=== PATIENT | female | born 1965 | race Caucasian/White ===

== ENCOUNTER 2017-07-23 12:16 | Inpatient (IN) | payer OTHER, MEDICAID ==
[~2017-07-23] VITALS: Ht 171.4 cm; Wt 61.1 kg
[2017-07-23 12:21] VITALS: BP 112/64; PULSE 98; RESP 20; O2SAT 96
--- NOTE | 2017-07-23 13:10 | ED.REPORT ---
HPI-Rash / Abscess Date of Service Jul 23, 2017 ED Provider: Doc,Ed MD History of Present Illness: noticed a month ago, redness and swelling on lower legs, saw some one at the walk in clinic in [place]. Has All and leukemia. not seeing anyone. on methadone now at 65mg at [facility], gradually getting worse, no notable allev/exac factors, described as similar to when she's had infections previously. also intermittent fever patient reports brother shot himself 2 days ago. At this time patient does not want to speak with DIESEL DINKEY OPERATOR Nursing Notes Chief Complaint: Skin Rash/Abscess Nursing Notes Reviewed: Yes Allergies: Coded Allergies: Penicillins (Verified Allergy, Mild, 07/23/17) Bright Pepper (Verified Allergy, Unknown, NO GREEN OR RED (BRIGHT) PEPPER, ) General Time Seen by MD: 13:10 Chief Complaint Rash Hx Obtained From: Patient Onset Occurred: More than a week ago... (1 month) Symptom Duration: Since onset Past Medical History Past Medical History Notes: ALL Past Medical History Reports: COPD Past Surgical History abscesses opened up, mostly right shoulder, left knee, eye Smoking History Current Every Day Smoker (5 cig a day for 35 years) Social History using heroin also per her report 4 days ago Alcohol Use: Denies alcohol use Drug Use: THC Occupation lives by self, no work or school 07/23/2017 Ambulatory Status Independent Review of Systems Basic Review of Systems : No dysuria, No frequency Endocrine: No cold intolerance, No heat intolerance, No weight gain, No weight loss Constitutional: Reports: Fever, Malaise Eyes: Denies: Visual loss bilateral Ears / Nose / Throat: Denies: Sore throat Respiratory: Denies: Shortness of breath Cardiovascular: Denies: Chest pain GI: Denies: Abdominal pain, Nausea, Vomiting Musculoskeletal: Denies: Back pain Skin: Reports Rash Allergy / Immune: Denies: Itching Complete sys rev & neg: except as marked. Female: Denies: Dysuria Hematologic: Denies Petechiae Endocrine: Denies: Polyuria Neurologic: Denies: Headache Psychiatric: Denies: Suicidal ideation Physical Exam Physical Exam Notes: pateint is clearly under the influence, when asked when she used last, stated 4 days ago. Initial Vital Signs Vital Signs (First) Date Time Temp Pulse Resp B/P Pulse Ox O2 Delivery O2 Flow Rate FiO2 07/23/17 12:21 37.4 98 20 112/64 96 Room Air Initial VS: Reviewed, Vital signs normal Head / Eyes: Atraumatic, Normocephalic, PERRL ENT: Mucous membranes moist, Conjunctiva normal, No scleral icterus Neck: Supple, Non-tender, Full range of motion Respiratory: Breath sounds normal, Clear to auscultation, No respiratory distress Cardiovascular: Regular rate & rhythm, Heart sounds normal, Intact distal pulses Abdomen / GI: Soft, Non-tender, No guarding, No rebound, No distention Back: No CVA tenderness Lymphatic: No lymphadenopathy Extremities: Vascular intact, Neuro intact, No swelling, No tenderness Neurologic: Alert, Oriented, Nonfocal Psychiatric: Mood/affect normal, Behavior normal, Normal thought content General/Constitutional: No acute distress Alertness: Positive: Sleeping but arousable Appearance / Presentation: Positive: Cachectic Rash / Lesion Notes: patient with what appears to be fresh injection site on right antecubital. Patient reporting lump around the area which started after injecting. Does not palpabate like discharge possible hematoma. bilateral legs have darker erthyma with pitting edema and mild swelling. bruising noted on left arm ENT: Airway patent, Mucous membranes moist, Pharynx NL Respiratory / Chest: Atraumatic, Breath sounds NL, Breath sounds = bilat Cardiovascular: Heart rate NL, Regular rhythm, Heart sounds NL patient with extensive scarring from multiple abscesses on right shoulder area. Patient reports missing part of her right shoulder. Interpretation & Diagnostics Lab Results Interpretation Result Diagram: 07/23/17 1355 07/23/17 1355 Test 07/23/17 13:55 White Blood Count 9.8th/mm3 (3.8-10.1) Red Blood Count 3.50mil/mm3 (3.90-5.20) Hemoglobin 11.3g/dL (12.0-15.6) Hematocrit 33.2% (35.0-46.0) Mean Corpuscular Volume 94.9fL (81-100) Mean Corpuscular Hemoglobin 32.3pg (27.0-35.0) Mean Corpuscular Hemoglobin Concent 34.0% (32.0-37.0) Red Cell Distribution Width 13.1% (12.3-15.4) Platelet Count 42bil/L (150-400) Neutrophils (%) (Auto) 35% (40-74) Lymphocytes (%) (Auto) 48% (14-46) Monocytes (%) (Auto) 7% (4-12) Eosinophils (%) (Auto) 2% (0-5) Basophils (%) (Auto) 0% (0-3) Band Neutrophils % 8% (1-5) Hematology Comments Wbc Sodium Level 136mEq/L (134-144) Potassium Level 3.5mEq/L (3.5-5.2) Chloride Level 103mEq/L (97-108) Carbon Dioxide Level 22mmol/L (18-29) Blood Urea Nitrogen 27mg/dL (6-24) Creatinine 0.70mg/dL (0.57-1.00) Estimat Glomerular Filtration Rate 127mL/min (>59) Glucose Level 108mg/dL (60-99) Lactic Acid Level 0.5mmol/L (0.4-2.0) Calcium Level 8.2mg/dL (8.5-10.1) Total Bilirubin 0.4mg/dL (0.0-1.2) Aspartate Amino Transf (AST/SGOT) 68U/L (0-50) Alanine Aminotransferase (ALT/SGPT) 45U/L (0-32) Alkaline Phosphatase 136U/L (25-150) Troponin T < 0.010ug/L (0.0-0.011) Pro-B-Type Natriuretic Peptide 2297pg/mL (0-249) Total Protein 6.7g/dL (6.4-8.4) Albumin 3.3g/dL (3.4-5.0) Lab Results Interpretation: u tox positive for THC, methamphetamines, opiates, methadone, oxycodone and amphatamines. Urine is negative for any sign of infection US Soft Tissue/Musculoskeletal PROCEDURE: US EXTREMITY SONOGRAM LIMITED ([id number]) INDICATIONS: lumps above elbow on right TECHNIQUE: Real-time scanning was performed of the right proximal upper extremity., with image documentation. COMPARISON: None. FINDINGS: There is a 32 mm focus of heteroechogenicity in the area of concern within the proximal right upper extremity. It is located approximately 8 mm from the skin surface. IMPRESSION: 32 mm focus of heteroechogenicity as above. This could represent hematoma. However, in appropriate clinical circumstance, abscess cannot be definitively excluded. Dictated by: Blank Anderson M.D. on 07/23/2017 at 15:29 Approved by: Blank Anderson M.D. on 07/23/2017 at 15:31 ROCEDURE: US VENOUS LEG DUPLEX BILATERAL INDICATIONS: leg pain and swelling TECHNIQUE: Real-time imaging, as well as color and pulse Doppler interrogation, were performed of the deep veins of both legs from the inguinal ligament to the popliteal fossa. COMPARISON: None. FINDINGS: The deep veins are normally compressible, and free of intraluminal thrombus. Color and pulse Doppler demonstrate normal phasic intravascular flow. There is normal augmentation response to distal compression maneuver. IMPRESSION: No visualized deep venous thrombosis. Dictated by: Blank Anderson M.D. on 07/23/2017 at 15:28 Approved by: Blank Anderson M.D. on 07/23/2017 at 15:29 Re-Eval/Medical Decision Med Decision/Clinical Course 51 year old female, clearly under the influence, provdes poor history. Lab results return with many abnormalities. US shows complex fluid by elbow. Legs are negative for any sign of clot formation. Patient with many risk factors. Discussed with Dr. Choi, will be admitted. Consultation #1: Referral / Consult Name: Anna Mancilla MD Consulted With: Rn Visiting Collator: Will see patient, Agrees with eval, Agrees with plan Consultation #2: Referral / Consult Name: Yogesh Fields MD Consulted With: Hospitalist Collator: Agrees with plan, Accepts admit Discharge & Departure Impression: Primary Impression: Bandemia Additional Impressions: Drug use Thrombocytopenia Lower extremity cellulitis Laterality: left Qualified Code: L03.116 - Cellulitis of left lower limb Disposition: ADMITTED TO HOSPITAL Discharge Condition Condition: Stable Referrals: NOPCP (PCP) EDSupervising Provider for APC: Murtaza Choi MD Attending Statement I saw and evaluated the patient in conjunction with the [employer] ANIMAL DAMAGE CONTROL AGENT. I agree with the plan and findings as documented above. In brief, 51-year-old female with a history of ALL presenting to the ED for evaluation of bilateral lower extremity redness, left worse than right. Disheveled, appears high/intoxicated. Nonlabored respirations. Small hematoma around the injection site, however does not appear to be fluctuant or indurated. Good peripheral perfusion. Laboratory studies as per above, notable for thrombocytopenia and bandemia. Discussed with hematology oncology, as per above. Started on antibiotics for presumed cellulitis of the left lower extremity. Plan admission for further management and evaluation. Patient agreeable to plan as stated, no further questions. copies to: OTHER,PHYSICIAN Brittany Walters Jul 23, 2017 13:10 Murtaza Choi MD Jul 23, 2017 15:35
[2017-07-23 14:02] LABS: Mean Corpuscular Hemoglobin 32.3 pg (27.0-35.0); Mean Corpuscular Volume 94.9 fL (81-100); Platelet Count 42 bil/L (150-400)
[2017-07-23 14:27] LABS: MONOCYTES % (AUTO) 7 % (4-12); NEUTROPHILS % (AUTO) 35 % (40-74)
[2017-07-23 14:28] LABS: BASOPHILS % (AUTO) 0 % (0-3); EOSINOPHILS % (AUTO) 2 % (0-5)
[2017-07-23 14:32] LABS: TROPONIN T < 0.010 ug/L (0.0-0.011)
--- NOTE | 2017-07-23 15:31 | DRSVH ---
PROCEDURE: US VENOUS LEG DUPLEX BILATERAL INDICATIONS: leg pain and swelling TECHNIQUE: Real-time imaging, as well as color and pulse Doppler interrogation, were performed of the deep veins of both legs from the inguinal ligament to the popliteal fossa. COMPARISON: None. FINDINGS: The deep veins are normally compressible, and free of intraluminal thrombus. Color and pu lse Doppler demonstrate normal phasic intravascular flow. There is normal augmentation response to d istal compression maneuver. IMPRESSION: No visualized deep venous thrombosis. Dictated by: Blank Anderson M.D. on 07/23/2017 at 15:28 Approved by: Blank Anderson M.D. on 07/23/2017 at 15:29
--- NOTE | 2017-07-23 15:32 | DRSVH ---
PROCEDURE: US EXTREMITY SONOGRAM LIMITED ([id number]) INDICATIONS: lumps above elbow on right TECHNIQUE: Real-time scanning was performed of the right proximal upper extremity., with image docum entation. COMPARISON: None. FINDINGS: There is a 32 mm focus of heteroechogenicity in the area of concern within the proximal rig ht upper extremity. It is located approximately 8 mm from the skin surface. IMPRESSION: 32 mm focus of heteroechogenicity as above. This could represent hematoma. However, in ap propriate clinical circumstance, abscess cannot be definitively excluded. Dictated by: Blank Anderson M.D. on 07/23/2017 at 15:29 Approved by: Blank Anderson M.D. on 07/23/2017 at 15:31
[2017-07-23] MEDS ORDERED: 0.9% Sodium Chloride 1,000 ML IV ONE (16:35)
[2017-07-23] MEDS ORDERED: Clindamycin Inj 900 MG in IV Premix 1 EACH IV ONE (16:35)
--- NOTE | 2017-07-23 17:01 | PCM.HPMED ---
Subjective Date of Service Jul 23, 2017 Primary Provider: Admitting Physician: Primary Care Physician: Renetta Attending Physician: Chief Complaint: left lower extr erythema History of Present Illness: 51-year-old female with past medical history of CLL, IV drug use presented to the emergency department with left lower leg erythema. Patient was diagnosed with cellulitis. Emergency department physician asked to admit the patient for further evaluation and management. Her ALL will be evaluated by oncologist production or plant engineer who agreed to see the patient. Patient was started on Clindamycin. Lower extremity ultrasound was negative for DVT. Patient looks mildly sedated/high. She is on Methadone 65 mg qd, took it today. She uses IV Heroin, last time she injected it today. Patient has several needle johnson on her left arm. Review of Systems: REVIEW OF SYSTEMS: GENERAL: + malaise, no fevers., SEE HPI HEENT: Negative for frequent or significant headaches All other reviewed and negative other than HPI. Allergies Coded Allergies: Penicillins (Verified Allergy, Mild, 07/23/17) Liu Pepper (Verified Allergy, Unknown, NO GREEN OR RED (LIU) PEPPER, ) PMH ALL Family History HTN Social History Hx Alcohol Use: Yes Hx Substance Use: Yes Hx Tobacco Use: Yes Smoking Status: Current Every Day Smoker (5 cig a day for 35 years) Exam Vital Signs Vital Sign - Last Date Time Temp Pulse Resp B/P Pulse Ox O2 Delivery O2 Flow Rate FiO2 07/23/17 12:21 37.4 98 20 112/64 96 Room Air Exam GENERAL: slow, mildly sedated/high HEAD: atraumatic, normocephalic EYES: AKOSUA, EOMI, anicteric, able to fully open and close eyelids SKIN: Skin color normal, turgor normal. No visible rashes or lesions. EAR, NOSE, MOUTH, THROAT: Lips, oral mucosa, tongue gums, oropharynx are moist , pink, no lesions. Ears normal appearance, no lesions. NECK: no jugulovenous distention; supple ROM normal. RESPIRATORY: Lungs clear to auscultation. Good diaphragmatic excursion. CARDIAC: normal S1 and S2; no rubs, murmurs, or gallops; regular rate and rhythm ABDOMEN: Abdomen soft, non-tender. BS normal. No masses or organomegaly. MUSCULOSKELETAL: ROM full, muscles are not tender EXTREMITIES: no pitting edema in LE, erythema and edema in left lower extremity. Several needle johnson on the left arm present. NEURO: Alert, oriented X 3, Sensation grossly intact., Cranial nerves II-XII intact, Grossly normal motor function. PULSES: 2+ radial, 2+ carotid Lab and Diagnostics Result Diagram: 07/23/17 1355 07/23/17 1355 X-Rays, CTs and MRIs PROCEDURE: US VENOUS LEG DUPLEX BILATERAL INDICATIONS: leg pain and swelling TECHNIQUE: Real-time imaging, as well as color and pulse Doppler interrogation, were performed of the deep veins of both legs from the inguinal ligament to the popliteal fossa. COMPARISON: None. FINDINGS: The deep veins are normally compressible, and free of intraluminal thrombus. Color and pulse Doppler demonstrate normal phasic intravascular flow. There is normal augmentation response to distal compression maneuver. IMPRESSION: No visualized deep venous thrombosis. PROCEDURE: US EXTREMITY SONOGRAM LIMITED ([id number]) INDICATIONS: lumps above elbow on right TECHNIQUE: Real-time scanning was performed of the right proximal upper extremity., with image documentation. COMPARISON: None. FINDINGS: There is a 32 mm focus of heteroechogenicity in the area of concern within the proximal right upper extremity. It is located approximately 8 mm from the skin surface. IMPRESSION: 32 mm focus of heteroechogenicity as above. This could represent hematoma. However, in appropriate clinical circumstance, abscess cannot be definitively excluded. Assessment & Plan 51-year-old female with past medical history of ALL, IV drug use(she is taking her in today), medical noncompliance presented to the emergency department with left lower extremity edema and erythema. She was started on clindamycin IV. Oncologist on-call was consulted from ED , he will see the patient for her ALL. Lower extremity cellulitis - Stable - Ultrasound is negative for DVT - Patient was started on clindamycin versus department continue with antibiotics - f/u Bx - avoid IV opioids Elevated BNP - will do ECHO ALL, thrombocytopenia. Anemia - Oncology consulted - Monitor CBC IV drug use - She used heroine IV today prior to admission - grizzly worker consult - will need to confirm the dose of her Methadone. - avoid IV opioids DVT PROPHYLAXIS: Sequential compression devices Code status: Patient would likely to be full code. Disposition: discharge after patient improves. Plan of care discussed with ED physician; Labs, radiology tests reviewed. Plan of care, medication side effects, home medication, diagnostic procedures and available alternatives were discussed and reviewed with patient. All questions answered. Patient verbalized understanding, approved and agreed to plan of care. Yogesh Fields MD Jul 23, 2017 17:01
[2017-07-23] MEDS ORDERED: Polyethylene Glycol (PEG) 17 Gm Powder PO PRN (17:05)
[2017-07-23] MEDS ORDERED: Ondansetron 2 mg/mL 2 mL Inj IVPUSH PRN (17:05)
[2017-07-23] MEDS ORDERED: Alum-Mag Hydrox-Simeth 30 mL Suspension PO PRN (17:05)
[2017-07-23 18:18] VITALS: BP 107/71; PULSE 82; RESP 20; O2SAT 98
[2017-07-23 19:00] VITALS: BP 115/69; PULSE 85; RESP 14; O2SAT 96
--- NOTE | 2017-07-23 19:06 | NUR ---
Transfer to [facility] Pt. transferred to [facility] at 1855 via [facility]. Pt. very drowsy/somnolent but is able to wake with verbal stimulation. She was able to transfer from [facility] to hospital bed independently. Vital signs stable. IV antibiotics running from ED. Pt. unable to answer admit questions at this time d/t somnolence. Does not stay awake long enough to answer questions. Report given to TORSTEN RIVERA.
[2017-07-23] MEDS: Clindamycin Inj 300 MG in Dextrose 5% 50 ML IV SCH (22:16)
[2017-07-24 00:55] VITALS: BP 120/73; PULSE 93; RESP 16; O2SAT 93
[2017-07-24] MEDS: Clindamycin Inj 300 MG in Dextrose 5% 50 ML IV SCH ×4 (04:24→21:51)
[2017-07-24 05:28] VITALS: BP 115/73; PULSE 90; RESP 18; O2SAT 93
[2017-07-24] MEDS ORDERED: LACT10SO27 PO (10:47)
[2017-07-24] MEDS ORDERED: METH10SO PO (10:47)
[2017-07-24] MEDS ORDERED: TOPI-31 PO (10:47)
[2017-07-24] MEDS ORDERED: BUPR150T12 PO (10:47)
[2017-07-24] MEDS ORDERED: IBUP200C11 PO (10:47)
--- NOTE | 2017-07-24 10:53 | NUR ---
Med Rec Med Rec completed, patient interview. patient confirmed that medications reviewed and listed are accurate to the best of her recollection.
[2017-07-24 11:07] LABS: Mean Corpuscular Volume 93.7 fL (81-100)
[2017-07-24 12:31] LABS: BASOPHILS % (AUTO) 0 % (0-3); EOSINOPHILS % (AUTO) 0 % (0-5); MONOCYTES % (AUTO) 11 % (4-12); NEUTROPHILS % (AUTO) 25 % (40-74); Platelet Count 33 bil/L (150-400)
[2017-07-24 12:33] LABS: ERYTHROCYTE SEDIMENTATION RATE 13 mm/hr (0-32)
--- NOTE | 2017-07-24 13:42 | PCM.PNMED ---
Subjective Date of Service Jul 24, 2017 Subjective Patient seen and examined. Complains of body aches all over. Vitals noted. Exam Vital Signs Vital Sign - Last Date Time Temp Pulse Resp B/P Pulse Ox O2 Delivery O2 Flow Rate FiO2 07/24/17 05:28 36.9 90 18 115/73 93 Room Air Intake and Output 07/23/17 07/23/17 07/24/17 Cumulative From/Thru 15:00 23:00 07:00 07/23/17 12:21 - 07/24/17 06:31 Intake Total 420 ml 420 ml Output Total 800 ml 800 ml Balance -380 ml -380 ml Intake Oral 120 ml 120 ml IV Total 300 ml 300 ml Output Urine Total 800 ml 800 ml Exam GENERAL: slow, mildly sedated/high SKIN: Skin color normal, turgor normal. No visible rashes or lesions. RESPIRATORY: Lungs clear to auscultation. Good diaphragmatic excursion. CARDIAC: normal S1 and S2; no rubs, murmurs, or gallops; regular rate and rhythm ABDOMEN: Abdomen soft, non-tender. BS normal. No masses or organomegaly. MUSCULOSKELETAL: ROM full, muscles are not tender EXTREMITIES: no pitting edema in LE, erythema and edema in left lower extremity. Several needle johnson on the left arm present. NEURO: Alert, oriented X 3, Sensation grossly intact., Cranial nerves II-XII intact, Grossly normal motor function. Lab and Diagnostics Result Diagram: 07/24/17 1056 07/24/17 1056 X-Rays, CTs and MRIs PROCEDURE: US VENOUS LEG DUPLEX BILATERAL INDICATIONS: leg pain and swelling TECHNIQUE: Real-time imaging, as well as color and pulse Doppler interrogation, were performed of the deep veins of both legs from the inguinal ligament to the popliteal fossa. COMPARISON: None. FINDINGS: The deep veins are normally compressible, and free of intraluminal thrombus. Color and pulse Doppler demonstrate normal phasic intravascular flow. There is normal augmentation response to distal compression maneuver. IMPRESSION: No visualized deep venous thrombosis. PROCEDURE: US EXTREMITY SONOGRAM LIMITED ([id number]) INDICATIONS: lumps above elbow on right TECHNIQUE: Real-time scanning was performed of the right proximal upper extremity., with image documentation. COMPARISON: None. FINDINGS: There is a 32 mm focus of heteroechogenicity in the area of concern within the proximal right upper extremity. It is located approximately 8 mm from the skin surface. IMPRESSION: 32 mm focus of heteroechogenicity as above. This could represent hematoma. However, in appropriate clinical circumstance, abscess cannot be definitively excluded. Additional Diagnostics Left upper extremity IMPRESSION: 32 mm focus of heteroechogenicity as above. This could represent hematoma. However, in appropriate clinical circumstance, abscess cannot be definitively excluded. Assessment & Plan 51-year-old female with past medical history of ALL, IV drug use(she is taking her in today), medical noncompliance presented to the emergency department with left lower extremity edema and erythema. She was started on clindamycin IV. Oncologist on-call was consulted from ED , he will see the patient for her ALL. Lower extremity cellulitis - Stable - Ultrasound is negative for DVT - Patient was started on clindamycin - f/u Bx - avoid IV opioids Right upper extremity lumps - US as above - patient afebrile , ESR negative - patient mentioned it has been there for a long time, and its gradually becoming smaller - no leukocytosis, band neutrophils likely 2/2 to ALL - will continue clindamycin for now, will get ID consult Elevated BNP - will do ECHO, especially considering history of drug use ALL, thrombocytopenia. Anemia - Oncology consulted - Monitor CBC IV drug use - She used heroine IV today prior to admission - direct care worker consult - will need to confirm the dose of her Methadone. - avoid IV opioids DVT PROPHYLAXIS: Sequential compression devices Code status: Patient would likely to be full code. Disposition: discharge after patient improves. Plan of care discussed with ED physician; Labs, radiology tests reviewed. Plan of care, medication side effects, home medication, diagnostic procedures and available alternatives were discussed and reviewed with patient. All questions answered. Patient verbalized understanding, approved and agreed to plan of care. Pain Evaluation: Adequate Pain Control Resuscitation Status: CPR: Attempt Resuscitation Time spent 35 mins Elias Jones MD Jul 24, 2017 13:42
[2017-07-24 14:24] VITALS: BP 107/76; PULSE 92; RESP 18; O2SAT 95
--- NOTE | 2017-07-24 15:29 | NUR ---
Social Work- Initial Assessment/Multidisciplinary Rounds Data: See Initial Assessment for additional information. Pt is a 51 year old female admitted for cellulitis, thrombocytopenia per H&P. Pt's insurance is [facility]. Pt has no PCP listed. Pt's readmi risk score is not listed at this time. Pt discussed in multidisciplinary rounds, pt has history of IVDU, last use just prior to admission. Substance Abuse order and PCP order received and acknowledged. SW met with pt at bedside regarding discharge plan and substance abuse (see additional substance abuse note). SW role explained. Pt alert and oriented x3. Pt resides in [place] an an apartment alone where she is independent with ADLs and self-care. Pt declined SW scheduling a primary care follow up as pt resides in [place]. Pt reports that she is working on obtaining a new PCP. Pt has a walker available for use and uses it occasionally. Pt does not drive, takes the bus. Pt has no HH or SNF history, no LTC or VA benefits. Pt reports that she is connected with [facility] for methadone, team working to verify dosing. Pt takes the bus every day to obtain methadone. Pt reports that she has been tapering down. Pt has mental health history. Pt is seeing a counselor named Sandip Sharma (spelling unknown). Pt unable to remember clinic's name. Pt denies any SI or HI at this time. Reports that her PCP managed her psychiatric medications but the clinic her counselor works at has the capacity to manage medications. Pt again confirms that she is working on obtaining a PCP. Pt confirms hx of IV heroin use, confirms that last use was just prior to admission. Pt reports that her brother recently completed suicide, she is grieving this loss and relapsed after three years of sobriety. (See additional Substance Abuse Assessment. SW provided phone number and plan on whiteboard, d/c planning checklist provided at bedside. Pt is likely to d/c home with friend Gita via POV when medically stable. SW will continue to follow for needs at discharge. Assessment: Pt who is independent with ADLs and self-care Plan: Pt likely to d/c home with friend Gita via POV when medically stable. SW will continue to follow for needs at time of d/c. ELBA Lainez Addendum: 07/24/17 at 1550 by GUIDO EGAN SS Amended: Links added.
--- NOTE | 2017-07-24 16:06 | NUR ---
Social Work- Substance Abuse Assessment Current Circumstances: Pt is a 51 year old female admitted for cellulitis per H&P. Substance Abuse assessment requested d/t pt's hx of IV heroin use, last use day of admission. Pt agreeable to conversation. History of Substance Use: Pt has a longstanding history of substance use, including IV heroin and etoh. Pt declined etoh consumption at this time but endorses IV heroin use. Pt has been connected with [facility] for methadone for the last three years. History of Treatment Programs: Pt has history of intpt tx at [facility] in [place]. Pt has also been connected with [facility] for the last three years for counseling and outpt support. History of Withdrawal Symptoms: Endorses anxiety, tremors, aching, denies hallucinations. Family History: Pt's mother has a history of etoh abuse, reports mom is sober at this time. History of Sobriety and Supports: Pt endorses three year period of sobriety prior to this admission. Pt was sober after inpt treatment and has continued to receive support from [facility] in [place], her mental health counselor, and [facility]. Pt's sobriety lapsed immediately prior to this admission due to the grief of her brother successfully completing suicide 3 days ago. Pt identifies her family and friends as a support to her sobriety as well. Pt is agreeable to connecting with all of these supports in the future. Patients Perception of use: Pt is hopeful that she will be able to regain her sobriety after this lapse. Pt is appropriately grieving the of her brother which contributed to her recent use. Pt states that she feels well supported by her friends, family, and her outpt services. Suicide Risk assessment: Pt denies any current SI or HI. Endorses history of SI and overdose attempt. Recommendations for referral and follow up: Pt is appropriately grieving the of her brother. Pt is agreeable to following up with her counselor in [place] immediately after this admission to gain support. Pt declined outpt CD and MH resources as she is connected with all services already. Pt is agreeable to following up with [facility] as well. SW offered to make any outpt appointments needed as well as assist in any way possible. Pt agreeable but declined assistance at this time. SW wrote phone number on whiteboard and encouraged contact. Pt agreeable. Pt to d/c home with friend to transport via POV. SW will continue to follow. ELBA Lainez
--- NOTE | 2017-07-24 17:23 | DRSVH ---
[facility] [address] [place] [address] Echocardiogram Report Name: ZOIE CARPIO JStudy Date: 07/24/2017 Height: 68 in Hospital Exam Location: [facility] Weight: 130 lb Gender: Female BSA: 1.7 m2 : 1965 Age: 51 yrs BP: 115/73 mmHg Reason For Study: ELEVATED BNP, IV DRUG USER Ordering Physician: Performed By: Carlyle Burden Interpretation Summary The left ventricle is normal in size, wall thickness, and systolic function without any focal wall motion abnormalities. The right ventricle is normal in size and function. There is no significant valvular heart disease. The echocardiogram is within normal limits. Procedure: A two-dimensional transthoracic echocardiogram with color flow and Doppler was performed. The study quality was technically good. There is no prior echocardiogram noted for this patient. The patient was in normal sinus rhythm during the exam. Left Ventricle: The left ventricle is normal in size. There is normal left ventricular wall thickness. The left ventricle is normal in size, wall thickness, and systolic function without any focal wall motion abnormalities. The ejection fraction is estimated to be 60-65%. There are no focal wall motion abnormalities. Assessment of diastolic parameters indicates normal left ventricular diastolic function and normal filling pressures. Right Ventricle: The right ventricle is normal in size and function. Atria: Both atria are normal in size. The interatrial septum is intact with no evidence for an atrial septal defect. Mitral Valve: The mitral valve is normal in structure and function. There is mild mitral regurgitation. Aortic Valve: The aortic valve is normal in structure and function. The aortic valve is trileaflet. The aortic valve opens well. No aortic regurgitation is present. Tricuspid Valve: The tricuspid valve is normal in structure and function. There is mild tricuspid regurgitation. The right ventricular systolic pressure is estimated at 27 mmHg assuming a right atrial pressure of 3 mm Hg. Pulmonic Valve: The pulmonic valve is not well seen, but is grossly normal. There is trace pulmonic regurgitation. Great Vessels: The aortic root is normal size. The dimensions of the ascending aorta are normal. The pulmonary artery is normal size. The IVC is of normal diameter and collapses greater than 50% with a sniff. This suggests a low right atrial pressure of 3 mm Hg. Pericardium/ Pleura There is no pericardial effusion. There is no pleural effusion. MMode/2D Measurements & Calculations LVIDd: 4.4 cm LA dimension: 2.9 cm LVIDs: 3.0 cm FS: 31.8 % LA A2 area: 13.3 cm EPSS: 0.44 cm LA A4 area: 12.5 cm IVSd: 0.74 cm LA length (vol): 3.7 cm LVPWd: 0.80 cm LA vol: 38.6 ml LA vol index: 22.7 ml/m IVC diam: 1.9 cm RA long axis: 4.0 cm Ao root diam: 2.3 cm RA area: 12.3 cm Aortic Jxn: 2.0 cm RA vol: 32.0 ml asc Aorta Diam: 2.6 cm RA : 18.8 ml/m2 LV kramer. diameter/BSA (cm/m^2): 2.6 LV sys. diameter/BSA (cm/m^2): 1.8 Doppler Measurements & Calculations Ao V2 max: 149.6 cm/sec MV E max david: 109.3 cm/sec Ao max P.9 mmHg MV A max david: 86.0 cm/sec Ao mean P.5 mmHg MV E/A: 1.3 TR max david: 244.1 cm/sec Med Peak E' David: 9.2 cm/sec TR max P.8 mmHg E/E' med: 11.9 PA V2 max: 80.0 cm/sec Pulm A Revs David: 37.5 cm/sec PA mean P.6 mmHg PA Accel Time: 0.10 sec MV dec time: 0.17 sec Ao V2 mean: 114.6 cm/sec Ao V2 VTI: 28.8 cm PA V2 mean: 59.4 cm/sec PA pr(Accel): 37.9 mmHg Reading Physician:05:22 PM
[2017-07-24] MEDS ORDERED: Lactulose 10 Gm/15 mL 473 mL Solution PO ONE (18:15)
[2017-07-24] MEDS ORDERED: Lactulose 20 Gm/30 mL 30 mL Syrup PO ONE (18:20)
[2017-07-24 19:51] VITALS: BP 118/85; PULSE 83; RESP 18; O2SAT 99
--- NOTE | 2017-07-24 22:09 | NUR ---
CARE TRANSFERED; to id at [id number].
--- NOTE | 2017-07-24 23:25 | NUR ---
PAIN; pt c/o pain "all over" and feeling like she is going to start going through withdrawls. Wanting her Methadone reordered "or Im going to have to go ama". pt stated. Dr. Guerra notifed and orders noted.
[2017-07-25] MEDS: Clindamycin Inj 300 MG in Dextrose 5% 50 ML IV SCH ×3 (02:49→15:10)
[2017-07-25 06:00] LABS: Mean Corpuscular Hemoglobin 31.5 pg (27.0-35.0); Mean Corpuscular Volume 93.4 fL (81-100); NEUTROPHILS % (AUTO) 24 % (40-74); Platelet Count 27 bil/L (150-400)
[2017-07-25 06:01] LABS: BASOPHILS % (AUTO) 0 % (0-3); EOSINOPHILS % (AUTO) 0 % (0-5); MONOCYTES % (AUTO) 16 % (4-12)
--- NOTE | 2017-07-25 06:06 | NUR ---
PAIN/GI; pt dosed rest of the shift. Medicated for nausea x1 with relief.
[2017-07-25 06:35] VITALS: BP 121/84; PULSE 81; RESP 18; O2SAT 98
--- NOTE | 2017-07-25 08:28 | PCM.PNMED ---
Subjective Date of Service Jul 25, 2017 Subjective Patient seen and examined. Still complains of pain everywhere. Vitals stable. Exam Vital Signs Vital Sign - Last Date Time Temp Pulse Resp B/P Pulse Ox O2 Delivery O2 Flow Rate FiO2 07/25/17 06:35 36.8 81 18 121/84 98 Room Air Intake and Output 07/24/17 07/24/17 07/25/17 Cumulative From/Thru 15:00 23:00 07:00 07/23/17 12:21 - 07/25/17 06:35 Intake Total 1485 ml 917 ml 2822 ml Output Total 800 ml 950 ml 2550 ml Balance 685 ml -33 ml 272 ml Intake Oral 1180 ml 676 ml 1976 ml IV Total 305 ml 241 ml 846 ml Output Urine Total 800 ml 950 ml 2550 ml # Bowel Movements 1 0 1 Exam GENERAL: alert and oriented X 3 SKIN: Skin color normal, turgor normal. No visible rashes or lesions. RESPIRATORY: Lungs clear to auscultation. Good diaphragmatic excursion. CARDIAC: normal S1 and S2; no rubs, murmurs, or gallops; regular rate and rhythm ABDOMEN: Abdomen soft, non-tender. BS normal. No masses or organomegaly. MUSCULOSKELETAL: ROM full, muscles are not tender EXTREMITIES: no pitting edema in LE, erythema and edema in left lower extremity. Several needle johnson on the left arm present. Lump on the posterior aspect of right arm, also healed surgery scars NEURO: Alert, oriented X 3, Sensation grossly intact., Cranial nerves II-XII intact, Grossly normal motor function. Lab and Diagnostics Result Diagram: 07/25/17 04507/25/17 0450 X-Rays, CTs and MRIs PROCEDURE: US VENOUS LEG DUPLEX BILATERAL INDICATIONS: leg pain and swelling TECHNIQUE: Real-time imaging, as well as color and pulse Doppler interrogation, were performed of the deep veins of both legs from the inguinal ligament to the popliteal fossa. COMPARISON: None. FINDINGS: The deep veins are normally compressible, and free of intraluminal thrombus. Color and pulse Doppler demonstrate normal phasic intravascular flow. There is normal augmentation response to distal compression maneuver. IMPRESSION: No visualized deep venous thrombosis. PROCEDURE: US EXTREMITY SONOGRAM LIMITED ([id number]) INDICATIONS: lumps above elbow on right TECHNIQUE: Real-time scanning was performed of the right proximal upper extremity., with image documentation. COMPARISON: None. FINDINGS: There is a 32 mm focus of heteroechogenicity in the area of concern within the proximal right upper extremity. It is located approximately 8 mm from the skin surface. IMPRESSION: 32 mm focus of heteroechogenicity as above. This could represent hematoma. However, in appropriate clinical circumstance, abscess cannot be definitively excluded. Additional Diagnostics Left upper extremity IMPRESSION: 32 mm focus of heteroechogenicity as above. This could represent hematoma. However, in appropriate clinical circumstance, abscess cannot be definitively excluded. Assessment & Plan 51-year-old female with past medical history of ALL, IV drug use(she is taking her in today), medical noncompliance presented to the emergency department with left lower extremity edema and erythema. She was started on clindamycin IV. Oncologist on-call was consulted from ED , he will see the patient for her ALL. Lower extremity cellulitis - Stable - Ultrasound is negative for DVT - Patient was started on clindamycin - PCT trended up, blood cx no growth so far - f/u Bx - avoid IV opioids Right upper extremity lumps - US as above - patient afebrile , ESR negative - h/o infection in right upper shoulder post hardware removal - patient mentioned it has been there for a long time, and its gradually becoming smaller - no leukocytosis, band neutrophils likely 2/2 to ALL - will continue clindamycin for now, will get ID consult Elevated BNP - Echo normal ALL, thrombocytopenia. Anemia - Oncology consulted, recs: to follow up with her primary oncologist at [place] - Monitor CBC IV drug use - She used heroine IV today prior to admission - workers compensation legal secretary consult - will need to confirm the dose of her Methadone. - avoid IV opioids DVT PROPHYLAXIS: Sequential compression devices Code status: Patient would likely to be full code. Disposition: discharge after patient improves. VTE Mechanical Devices: Intermittant Pneumatic CD Resuscitation Status: CPR: Attempt Resuscitation Time spent 35 mins Elias Jones MD Jul 25, 2017 08:28
[2017-07-25] MEDS ORDERED: 0.9% Sodium Chloride 100 ML ONE (10:01)
--- NOTE | 2017-07-25 10:10 | NUR ---
Pain Patient reported 7/10 arm pain. 5mg of Oxycodone given. Denies nausea at this time. Patient independent in room. Call light and tray table within reach. Will continue to monitor patient hourly.
[2017-07-25 11:31] VITALS: BP 118/83; PULSE 78; RESP 19; O2SAT 99
--- NOTE | 2017-07-25 15:09 | PCM.DIMED ---
Discharge Instructions Date of Service Jul 25, 2017 Dates of Hospitalization Jul 23, 2017 at 17:01 Discharge Diagnosis Discharge Diagnosis Cellulitis lower extremities ALL Diet Discharge Diet: Heart Healthy Activity Discharge Activity: No restrictions Call your provider Call your provider for: Fever or Chills, Shortness of breath, Chest pain, Excessive diarrhea Patient Instructions Follow-up plan Followup with oncologist outpatient in 3 days to repeat CBCs Follow-up with PCP in: 1 week Elias Jones MD Jul 25, 2017 15:09
[2017-07-25] MEDS ORDERED: CLIN-78 PO (15:10)
--- NOTE | 2017-07-25 15:37 | PCM.DC.MED ---
Discharge Summary Date of Service Jul 25, 2017 Dates of Hospitalization Date of Hospital Admission Jul 23, 2017 at 17:01 Date of Discharge: Jul 25, 2017 Providers: Admitting Physician: Yogesh Fields MD Primary Care Physician: Renetta Attending Physician: Brandee Harry MD Diagnosis at Time of Discharge Diagnosis at Time of Discharge Cellulitis lower extremities ALL Procedures XRay, CTs & MRIs PROCEDURE: US VENOUS LEG DUPLEX BILATERAL INDICATIONS: leg pain and swelling TECHNIQUE: Real-time imaging, as well as color and pulse Doppler interrogation, were performed of the deep veins of both legs from the inguinal ligament to the popliteal fossa. COMPARISON: None. FINDINGS: The deep veins are normally compressible, and free of intraluminal thrombus. Color and pulse Doppler demonstrate normal phasic intravascular flow. There is normal augmentation response to distal compression maneuver. IMPRESSION: No visualized deep venous thrombosis. PROCEDURE: US EXTREMITY SONOGRAM LIMITED ([id number]) INDICATIONS: lumps above elbow on right TECHNIQUE: Real-time scanning was performed of the right proximal upper extremity., with image documentation. COMPARISON: None. FINDINGS: There is a 32 mm focus of heteroechogenicity in the area of concern within the proximal right upper extremity. It is located approximately 8 mm from the skin surface. IMPRESSION: 32 mm focus of heteroechogenicity as above. This could represent hematoma. However, in appropriate clinical circumstance, abscess cannot be definitively excluded. Other Diagnostics Left upper extremity IMPRESSION: 32 mm focus of heteroechogenicity as above. This could represent hematoma. However, in appropriate clinical circumstance, abscess cannot be definitively excluded. Brief History 51-year-old female with past medical history of CLL, IV drug use presented to the emergency department with left lower leg erythema. Patient was diagnosed with cellulitis. Emergency department physician asked to admit the patient for further evaluation and management. Her ALL will be evaluated by oncologist refrigeration engineer who agreed to see the patient. Patient was started on Clindamycin. Lower extremity ultrasound was negative for DVT. Patient looks mildly sedated/high. She is on Methadone 65 mg qd, took it today. She uses IV Heroin, last time she injected it today. Patient has several needle johnson on her left arm. Hospital Course 51-year-old female with past medical history of ALL, IV drug use(she is taking her in today), medical noncompliance presented to the emergency department with left lower extremity edema and erythema. She was started on clindamycin IV. Oncologist on-call was consulted from ED , he will see the patient for her ALL. Lower extremity cellulites - Stable - Ultrasound is negative for DVT - Patient was started on clindamycin - PCT trended up, blood cx no growth so far - f/u Bx negative so far - discussed with ID, thanks for recs : clindamycin po outpatient - avoid IV opioids Right upper extremity lumps - US as above - patient afebrile , ESR negative - h/o infection in right upper shoulder post hardware removal - patient mentioned it has been there for a long time, and its gradually becoming smaller - no leukocytosis, band neutrophils likely 2/2 to ALL - will continue clindamycin for now, will get ID consult Elevated BNP - Echo normal ALL, thrombocytopenia. Anemia - Oncology consulted, recs: to follow up with her primary oncologist at [place] -patient to make an appointment rashard IV drug use - She used heroine IV today prior to admission - machine operator hop worker consult - will need to confirm the dose of her Methadone. - avoid IV opioids Exam Vital Signs (Last) Date Time Temp Pulse Resp B/P Pulse Ox O2 Delivery O2 Flow Rate FiO2 07/25/17 11:31 36.6 78 19 118/83 99 Room Air Test 07/23/17 13:55 07/24/17 10:56 07/25/17 04:50 07/25/17 14:18 Lactic Acid Level 0.5mmol/L (0.4-2.0) Troponin T < 0.010ug/L (0.0-0.011) Pro-B-Type Natriuretic Peptide 2297pg/mL (0-249) Blast Cells % 1% (0-0) Erythrocyte Sedimentation Rate 13mm/hr (0-32) Total Bilirubin 0.5mg/dL (0.0-1.2) Aspartate Amino Transf (AST/SGOT) 63U/L (0-50) Alanine Aminotransferase (ALT/SGPT) 42U/L (0-32) Alkaline Phosphatase 153U/L (25-150) Total Protein 5.9g/dL (6.4-8.4) Albumin 3.1g/dL (3.4-5.0) White Blood Count 7.9th/mm3 (3.8-10.1) Red Blood Count 3.94mil/mm3 (3.90-5.20) Hemoglobin 12.4g/dL (12.0-15.6) Hematocrit 36.8% (35.0-46.0) Mean Corpuscular Volume 93.4fL (81-100) Mean Corpuscular Hemoglobin 31.5pg (27.0-35.0) Mean Corpuscular Hemoglobin Concent 33.7% (32.0-37.0) Red Cell Distribution Width 13.6% (12.3-15.4) Platelet Count 27bil/L (150-400) Neutrophils (%) (Auto) 24% (40-74) Lymphocytes (%) (Auto) 43% (14-46) Monocytes (%) (Auto) 16% (4-12) Eosinophils (%) (Auto) 0% (0-5) Basophils (%) (Auto) 0% (0-3) Band Neutrophils % 13% (1-5) Metamyelocytes % 3% (0-0) Sodium Level 136mEq/L (134-144) Potassium Level 4.0mEq/L (3.5-5.2) Chloride Level 102mEq/L (97-108) Carbon Dioxide Level 23mmol/L (18-29) Blood Urea Nitrogen 16mg/dL (6-24) Creatinine 0.71mg/dL (0.57-1.00) Estimat Glomerular Filtration Rate 125mL/min (>59) Glucose Level 94mg/dL (60-99) Calcium Level 8.2mg/dL (8.5-10.1) Procalcitonin 0.32ng/mL (0.00-0.08) Hematology Comments Discharge Medications Discharge Medications Bupropion ER (Bupropion ER) 150 Mg Tablet.er 150 MG PO BID (Reported) Clindamycin (Clindamycin) 300 Mg Capsule 300 MG PO QID Prescribed by: BRANDEE HARRY MD Lactulose (Lactulose) 10 Gm/15 Ml Solution 10 GM PO BID (Reported) Methadone (Methadone) 10 Mg/5 Ml Solution 50 MG PO DAILY (Reported) Topiramate (Topiramate) 100 Mg Tablet 100 MG PO BID (Reported) As needed Ibuprofen (Advil) 200 Mg Capsule 800 MG PO TID PRN PRN For Pain (Reported) Followup Plan Follow-up plan Followup with oncologist outpatient in 3 days to repeat CBCs Discharge Diet: Heart Healthy Discharge Activity: No restrictions Follow-up with PCP in: 1 week Time spent 35 mins Brandee Harry MD Jul 25, 2017 15:37 Brandee Harry MD Jul 25, 2017 15:37
--- NOTE | 2017-07-25 17:05 | DRSVH ---
PROCEDURE: US ABDOMEN INDICATIONS: elevated liver enzymes TECHNIQUE: Real-time scanning was performed of the abdominal and retroperitoneal organs, with image documentatio n. COMPARISON: None. FINDINGS: Liver length: 17.61 cm Gallbladder Wall Thickness: 1.30 mm CHD: 4.10 mm CBD: 9.50 mm Spleen length: 13.32 cm Right kidney length: 10.24 cm Left kidney length: 11.04 cm Aorta(Proximal): 1.88 cm Aorta(Mid): 1.41 cm Aorta(Distal): 1.37 cm RCIA: 8.20 mm LCIA: 8.20 mm Liver: Liver is normal in size and homogeneous in echotexture. Gallbladder: No gallstones identified. Normal gallbladder wall. No pericholecystic fluid. Negativ e sonographic Palacio sign. Biliary ducts: Intrahepatic bile ducts are non-dilated. Extrahepatic bile duct caliber is normal. Normal is 6-7 mm or less in diameter, or 10 mm or less post-cholecystectomy. Pancreas: Visualized portions of the pancreas are sonographically normal. Spleen: Spleen is upper limits of normal in size and homogeneous in echotexture. Kidneys: Kidneys are normal in size and echotexture. No hydronephrosis or nephrolithiasis. No ava d masses. Aorta: Visualized aorta is normal in caliber at less than 3 cm. Iliacs: Proximal common iliac arteries are normal in caliber at less than 2.5 cm. IVC: Intrahepatic inferior vena cava is patent. Miscellaneous: No free abdominal fluid. IMPRESSION: 1. No definite sonographic abnormality identified. Of note, the spleen is normal in length measuring 12.9 cm but appears mildly prominent axially. Dictated by: Gagandeep ONEILL Interpreted: Blank Anderson MD on 07/25/2017 at 10:26 Approved by: Blank Anderson M.D. on 07/25/2017 at 17:03
--- NOTE | 2017-07-25 17:23 | NUR ---
Discharge Patient discharged home. IV DC'd and intact. Discharge instructions given with no questions. RX faxed to [facility] and original sent with patient. Patient gathered all belongings. Patient educated on medications and to follow up with her oncologist. CRYPTOLOGIC SUPERVISOR escorted patient out via W/C.
--- NOTE | 2017-07-25 19:30 | CONS ---
[address] [address] CONSULTATION REPORT PATIENT: ZOIE CARPIO : 1965 MR#: [id number] ADMIT: 07/23/2017 JOB ID: [id number] DATE OF SERVICE: 07/25/[address] Jones for this timely consult. REASON FOR CONSULTATION: Cellulitis, left lower extremity, in an IV drug user. HISTORY OF PRESENT ILLNESS: The patient is a 51-year-old woman with a longstanding history of on-and-off intravenous and intramuscular drug use. Interestingly, she also has a history of ALL and reports that she was diagnosed and treated for ALL about three years ago. She says she declined a bone marrow transplant and is now being followed by Heme-Onc doctor in [place]. She reports she ended her last chemotherapy just a few months ago and has been feeling fine. She also has some underlying COPD and a history of recurrent soft tissue infections with history of depression and seizure disorder. The patient reports she was well until a couple months ago when developed redness and swelling in both lower extremities. She reports over the past couple months, she has had some intermittent fevers and sweats in association with intermittent but gradually worsening erythema of both lower extremities. More recently, there has been actual weeping from the swollen red lower extremities, and for that reason, she sought evaluation and was admitted here. A friend supplied her with some antibiotics prior to her admission, which was on July 23, which may have rendered some of our cultures negative. The patient had been doing fairly well with her drug use until recently, when her brother committed suicide. She has relapsed in terms of drug use and interestingly she injects drugs directly to her femoral vein as well as intramuscularly into her buttocks. She denies any infection at these sites and has concerns about infection more in her distal legs bilaterally. She also has developed a bump just proximal to her right elbow. This area is nontender and is quite firm and she attributes this to a fall she took recently. Recently the patient has had no fevers, chills, or sweats. No significant sore throat, cough, shortness of breath or GI symptoms. Since admission two days ago, the patient has been receiving IV clindamycin because of a history of severe penicillin reaction in the past. With this two days of clindamycin, she notes tremendous improvement in her lower extremities bilaterally, though still a little residual tenderness in the left ankle region. Also note that the patient underwent some sort of dramatic right shoulder surgery at the [facility] which has left her without, she says, a ball joint in her right shoulder and her right shoulder is basically frozen in place. This was apparently due to some prior infection. PAST MEDICAL HISTORY: 1. ALL, in remission by patient's report. 2. COPD. 3. IV and IM drug use. 4. History of recurrent soft tissue infections. 5. History of ill-characterized seizure disorder. 6. Depression. SOCIAL HISTORY: As noted, the patient injects drugs by the IM and intravenous route. She is also a cigarette smoker and alcohol consumer. She is currently living with a friend in the local area. FAMILY HISTORY: Family history negative for TB in first- and second-degree relatives. REVIEW OF SYSTEMS: Patient has no significant headache today, no visual complaints. Minimal sore throat. A bit of a so-called smoker's cough but not productive. She is not significantly short of breath. No chest pain. No nausea, vomiting, diarrhea, or dysuria. Remainder of the review of systems is negative. PHYSICAL EXAMINATION: Reveals a thin woman, BMI 20. She looks much older than her stated age of 51. She is afebrile. Temp 36.6. She has been afebrile since admission two days ago. Pulse 78, respiratory rate 19, blood pressure 118/83, saturating well on room air. Examination of the head reveals no notable abnormalities. The eyes are without conjunctivitis. The oral cavity, no thrush or hairy leukoplakia. No pharyngitis is noted. The patient is edentulous. Her neck supple. No significant adenopathy noted in the neck. Lungs are clear. Cardiac tones: Regular rate and rhythm. Abdomen with what appears to be a spleen that extends about 3 cm below the left costal margin. This is a difficult exam as the patient does not relax very well. No suprapubic fullness. No Gatica catheter. The right shoulder has a major scar directly over the joint line as well as one more laterally. She is basically unable to laterally flex her shoulder and really has very restricted range of motion of the right shoulder apparatus. There is no warmth or tenderness in the area, however, and it appears this is scarred and of course the patient says there is no longer a joint there so that may be in fact what has transpired. Left shoulder has good range of motion. The patient's lower extremities are notable for some venous stasis changes in both legs below the knees, more so on the left than the right. There is minimal tenderness just above the ankle on the left side. There are no blebs, no bullae and no skin breakdown on either leg. Peripheral pulses are diminished in both dorsal pedal and posterior tibial on both sides. Capillary refill is slow for a 51-year-old, but there is no longer any residual significant edema. There is no synovitis of the ankles or knees. Neurologically, she is grossly intact. LABORATORIES: Include normal white count, 7-10,000 since admission but unusual diff, 24% segs, 43% lymphs, 16% monos, 13% bands, 3% metas and 1% blast cells. Sed rate is 13, interestingly, and there are some comments; atypical lymphocytes are also noted of interest, as are some giant platelets. Creatinine 0.71. Procalcitonin 0.3. Blood cultures negative. MRSA screen was not done apparently. IMAGING: Consists of an ultrasound of bilateral lower extremities which showed no DVTs, and additional study was an upper extremity ultrasound to that lesion above the right elbow. It shows a 32 mm focus of hetero echogenicity which could be consistent with hematoma or conceivably an abscess, though clinically that is not the case. IMPRESSION: This patient appears to have venous stasis. She reports two months of progressively increasing swelling and redness and gradual pain in both legs. She had subjective fevers and chills though it is a little unclear what to make of that in a person with ongoing intravenous drug injection. At this point, her legs are symmetrically and rapidly improving with elevation and local care, and I suspect that there was no underlying infection. Given that she has improved while receiving two or three days of clindamycin though, I think it is not unreasonable to finish out a 10-day or so course of oral clindamycin and send her out on about one more week of oral clindamycin to be sure there was no infection as she had taken some antibiotics on an outpatient basis which clouds the picture. A bigger issue here may be her ALL. We have no idea what her baseline counts are but she is followed by a Heme-Onc doctor in [place]. She currently has a reduced neutrophil count though she is not absolutely neutropenic. She also has very significant thrombocytopenia and a few blasts and metamyelocytes in her peripheral smear, all of which suggests she may have some relapsing disease. She also has what appears to be a big spleen which would be unusual if her ALL was under good control. She tells us she had hep C in the past which could, of course, produce cirrhosis and splenomegaly, but she tells us that has been cured. RECOMMENDATIONS: 1. I would switch the patient to oral clindamycin 300 q.i.d. and discharge her at any time. 2. No additional Infectious Disease followup as required. 3. Peripheral smear should be done and the patient should be seen again by her Heme-Onc doctor. Thank you very much for this consult. ID will sign off at this time.
[2017-07-25] MEDS ORDERED: buPROPion SR 150 mg ER12 Tablet PO SCH (20:30)
[2017-07-25] MEDS ORDERED: Lactulose 20 Gm/30 mL 30 mL Syrup PO SCH (20:30)
== END 2017-07-25 17:23 | disposition home or self-care (01) | DRG 603 ==
LOC: SED 12:16 → OSC 17:01
PROVIDERS: ADMIT Internal Medicine; ATTEND Internal Medicine
DX: L03.116 Cellulitis of left lower limb (principal); C91.00 Acute lymphoblastic leukemia not having achieved remission; L03.115 Cellulitis of right lower limb; F11.10 Opioid abuse, uncomplicated; F17.200 Nicotine dependence, unspecified, uncomplicated; F12.90 Cannabis use, unspecified, uncomplicated; M79.89 Other specified soft tissue disorders; F15.90 Other stimulant use, unspecified, uncomplicated; Z88.0 Allergy status to penicillin; Z91.14 Patient's other noncompliance with medication regimen